=== PATIENT | female | born 2000 | race Caucasian/White ===

== ENCOUNTER 2023-09-02 21:26 | Emergency (ER) | payer OTHER, SELFPAY ==
--- NOTE | 2023-09-02 21:28 | ECG_ITS ---
Measurements Intervals [place] Rate: 109 P: 39 SD: 146 QRS: 29 QRSD: 84 T: 30 QT: 318 QTc: 428 Interpretive Statements SINUS TACHYCARDIA ABNORMAL ECG NO PREVIOUS ECG AVAILABLE FOR COMPARISON Electronically Signed On 09-03-2023 7:24:36 CDT by Ashvin Crouch D.O.
[2023-09-02 21:43] VITALS: BP 138/78; PULSE 120; RESP 18; TEMP 36.5; O2SAT 100
[2023-09-02 22:02] VITALS: O2SAT 100
[2023-09-02 22:06] LABS: Basophils Percent Auto 0.3 % (0.2-1.2); Eosinophils Percent Auto 0.2 % (0-4.4); Hematocrit 31.2 % (37.0-47.0); Hemoglobin 9.7 g/dL (12.0-15.0); Immature Granulocyte Absolute 0.07 K/mm3 (0.00-0.031); Immature Granulocyte Percent A 0.6 % (0-0.5); Lymphocytes Absolute Auto 2.68 K/mm3 (0.9-3.2); Lymphocytes Percent Auto 22.6 % (18.3-44.2); Mean Corpuscular HGB Conc 31.1 g/dl (32-36); Mean Corpuscular Hemoglobin 24.2 pg (26-34); Mean Corpuscular Volume 77.8 fl (80-100); Mean Platelet Volume 10.5 fl (7.4-10.4); Monocytes Absolute Auto 0.9 K/mm3 (0.1-0.6); Monocytes Percent Auto 7.7 % (2.6-8.5); Neutrophils Absolute Auto 8.2 K/mm3 (1.3-6.7); Neutrophils Percent Auto 68.6 % (45.5-73.1); Platelet Count Result 327 k/mm3 (150-375); Red Blood Count 4.01 M/mm3 (4.2-5.4); Red Cell Distribution Width 17.4 % (11.5-14.5); White Blood Count 11.9 K/mm3 (4.5-10.0)
[2023-09-02 22:07] VITALS: PULSE 114
[2023-09-02 22:17] LABS: Prothrombin Time 13.8 Seconds (11.1-14.7)
[2023-09-02 22:18] LABS: Partial Thromboplastin Time 27.3 Seconds (22.3-36.8)
[2023-09-02 22:23] LABS: Alanine Aminotransferase 13 U/L (6-35); Albumin Level 4.2 g/dL (3.5-5.1); Alkaline Phosphatase 77 U/L (38-126); Anion Gap 8 mmol/L (8-16); Aspartate Amino Transferase 20 U/L (14-36); Bilirubin,Total 0.5 mg/dL (0.2-1.3); Blood Urea Nitrogen 12 mg/dL (7-17); Calcium 9.6 mg/dL (8.4-10.2); Carbon Dioxide 20 mmol/L (22-30); Chloride 105 mmol/L (98-107); Estimated CRCL calculation 150 ml/min; Estimated Glomerular Filt Rate > 60; Glucose 92 mg/dL (65-110); Lipase 89 U/L (23-300); Potassium 3.6 mmol/L (3.4-5.0); Sodium 133 mmol/L (137-145)
[2023-09-02 22:26] VITALS: BP 111/72; PULSE 102; RESP 18; O2SAT 100
[2023-09-02 22:45] LABS: Troponin I < 0.012 ng/mL (0.000-0.034)
--- NOTE | 2023-09-02 23:02 | ED.CHESTPAIN ---
HPI - Chest Pain General Chief Complaint: Chest Pain Stated Complaint: chest pain, LLQ pain-26 weeks Time Seen by Provider: 09/02/23 22:45 History of Present Illness HPI narrative: 23-year-old female presents to the emergency department for evaluation of persistent nausea and vomiting. Patient is 26 weeks . Patient states she has been having nausea and vomiting during this but began having some right-sided chest pain with emesis today. Patient denies any lower abdominal pain. Related Data Allergies Allergy/AdvReac Type Severity Reaction Status Date / Time No Known Allergies Allergy Verified 09/02/23 22:04 Review of Systems Review of Systems: All systems reviewed & are unremarkable except as noted in HPI and below PMFSH Past Medical History Medical History Anxiety Depression Encounter for Nexplanon removal 12/30/20222015- 2018 Nexplanon insertion 2019 2013 2016 Family History Family History Mother Lung cancer Other Family history of malignant neoplasm Social History Social History Smoking status: Never smoker Second hand tobacco smoke exposure: No Alcohol intake: former Alcohol use details: socially Substance use: never Substance use type: does not use Lack of Transportation: No Lack of Food: Never True Current Housing: I Have Housing Concerned About Future Housing: No Difficulty Paying Gas/Electric Bills: No Difficulty Paying for Meds: No Currently Unemployed: No Education: Don't Know Living arrangements: with family Additional living arrangements comments: single Occupation/Education: occupation Additional occupation/education comments: [employer] Gender identity (if verbalized by the patient): Female Sexual Orientation (if Verbalized by the Patient): Straight or Heterosexual Exam Narrative: APPEARANCE: Well appearing, no pain, no distress, well-nourished. HEAD: normocephalic, atraumatic. EYES: PERRLA/EOMI, conjunctivae clear. NOSE: Normal no drainage EARS:TMS clear with good light reflex. THROAT: Pharynx clear, no exudate. NECK: Supple. No adenopathy, no masses. RESPIRATORY: Airway patent, respirations nonlabored. Clear to auscultation bilaterally, no rales, rhonchi, wheezing. CARDIOVASCULAR: Regular rate and rhythm without murmurs rubs or gallops. ABDOMINAL: Soft, nontender, nondistended, normal bowel sounds MUSCULOSKELETAL: Moves all extremities. Strength/ROM intact, No edema, No calf tenderness. NEURO: Alert. Cranial nerves II through XII intact. Good gait. Good coordination SKIN: Warm, dry. Normal Color PSYCHIATRIC: Normal affect/mood. Course Course Emergency Course: Patient felt improved with treatment and was discharged home with additional anti emetics Vital Signs Vital signs: Vital Signs Temperature 97.7 F 09/02/23 21:43 Pulse Rate 120 H 09/02/23 21:43 Respiratory Rate 18 09/02/23 21:43 Blood Pressure 138/78 09/02/23 21:43 Pulse Oximetry 100 09/02/23 21:43 Temperature 97.7 F 09/02/23 21:43 Pulse Rate 90 09/03/23 01:17 Respiratory Rate 16 09/03/23 01:17 Blood Pressure 124/83 09/03/23 01:17 Pulse Oximetry 100 09/03/23 01:17 Oxygen Delivery Room Air 09/02/23 22:02 MDM - Chest Pain MDM Narrative Medical decision making narrative: 23-year-old female presents to the emergency department for evaluation persistent nausea and vomiting. Upon arrival emergency depart patient heart rate is 120 but did improve with rehydration. Patient is afebrile but has a leukocytosis of less than 15 and hemoglobin of 9.7. Patient denies any active bleeding. CMP is within normal limits no elevated lipase. Differential Diagnosis Differential diagnosis: Likely atypical chest pain, chest pain and biliar
[2023-09-02] MEDS: ONDANSETRON INJ 4 MG/2 ML VIAL IV PUSH (23:14)
[2023-09-02] MEDS: SODIUM CHLORIDE 0.9% IV 1,000 ML 999 ML IV CONT (23:14)
[2023-09-02 23:21] VITALS: BP 126/72; PULSE 89; RESP 16; O2SAT 100
[2023-09-03 01:17] VITALS: BP 124/83; PULSE 90; RESP 16; O2SAT 100
== END 2023-09-03 01:17 | disposition home or self-care (01) ==
PROVIDERS: Emergency Provider Emergency Medicine
DX: O21.0 Mild hyperemesis gravidarum (principal); O99.891 Other specified diseases and conditions complicating pregnancy; R00.0 Tachycardia, unspecified; Z3A.26 26 weeks gestation of pregnancy
CPT/HCPCS: 36415; 80053; 83690; 84484; 85025; 85610; 85730; 93005; 96361; 96374; 99284; J2405; J7030

== ENCOUNTER 2023-09-27 16:37 | Outpatient (CLI) | payer OTHER, SELFPAY ==
[2023-09-27 17:05] VITALS: BP 119/64; PULSE 85
[2023-09-27 17:15] VITALS: BP 111/64; PULSE 81
[2023-09-27 17:30] VITALS: BP 112/60; PULSE 83
[2023-09-27 17:38] VITALS: BP 112/60; PULSE 83
== END 2023-09-27 17:50 | disposition home or self-care (01) ==
LOC: ANHOBOP 16:43 → ANHOBPP 16:46
PROVIDERS: Visit Provider Obstetrics & Gynecology
DX: O42.90 Premature rupture of membranes, unspecified as to length of time between rupture and onset of labor, unspecified weeks of gestation (principal); Z3A.00 Weeks of gestation of pregnancy not specified
CPT/HCPCS: 59025; 84112; 99199

== ENCOUNTER 2023-10-04 11:25 | Observation (INO) | payer OTHER, SELFPAY ==
[2023-10-04 11:49] VITALS: BP 119/72; PULSE 95
[2023-10-04 12:00] VITALS: BP 125/76; PULSE 94
[2023-10-04 12:26] LABS: Alanine Aminotransferase 8 U/L (6-35); Albumin Level 3.7 g/dL (3.5-5.1); Alkaline Phosphatase 68 U/L (38-126); Anion Gap 5 mmol/L (4-12); Aspartate Amino Transferase 14 U/L (14-36); Bilirubin,Total 0.5 mg/dL (0.2-1.3); Blood Urea Nitrogen 7 mg/dL (7-17); Calcium 8.9 mg/dL (8.4-10.2); Carbon Dioxide 22 mmol/L (22-30); Chloride 108 mmol/L (98-107); Estimated Glomerular Filt Rate > 60; Glucose 99 mg/dL (65-110); Lipase 44 U/L (23-300); Potassium 3.5 mmol/L (3.4-5.0); Sodium 135 mmol/L (137-145)
[2023-10-04 12:30] VITALS: BP 107/69; PULSE 90
[2023-10-04 12:38] LABS: Appearance Urine Cloudy (Clear); Bacteria Urine 3+ /hpf; Bilirubin Urine Negative (Negative); Blood Urine Negative (Negative); Color Urine Dark Yellow (Yellow); Glucose Urine UA Negative (Negative); Ketones Urine Trace mg/dL (Negative); Leukocyte Esterase Ur 2+ LEU/UL (Negative); Mucus Urine Present /lpf; Nitrate Urine Negative (Negative); Non Pathogenic Casts 0-2; Protein Urine Trace mg/dL (Negative); Squamous Epithelial Cell Urine Moderate /hpf (Few); WBC Urine 51-100 /hpf (0-3)
[2023-10-04 12:39] LABS: Add Urine Microscopic? YES
[2023-10-04 13:00] VITALS: BP 113/60; PULSE 80
--- NOTE | 2023-10-04 13:10 | P.PNOB_ITS ---
OB - Triage/Final Diagnosis Visit Information Comments/Additional reasons for admission: I have assessed the risk for this patient, Catrachita Avery, and determined that she would benefit from observation care. Evaluation Laboratory results: Laboratory Tests 10/04/23 12:03 Sodium 135 L Potassium 3.5 Chloride 108 H Carbon Dioxide 22 Anion Gap 5 BUN 7 D Creatinine 0.50 L Estim Creat Clear Calc Not Reportable Estimated GFR > 60 Glucose 99 Calcium 8.9 Total Bilirubin 0.5 AST 14 ALT 8 Alkaline Phosphatase 68 Total Protein 7.0 Albumin 3.7 Lipase 44 Urine Color Dark yellow Urine Appearance Cloudy H Urine pH 6.0 Ur Specific [place] 1.030 Urine Protein Trace Urine Glucose (UA) Negative Urine Ketones Trace H Ur Blood (Man) Negative Urine Nitrate Negative Urine Bilirubin Negative Urine Urobilinogen 1.0 Leukocyte Esterase Rfl 2+ H Urine RBC 3-5 H Urine WBC 51-100 H Ur Squamous Epith Cells Moderate Urine Bacteria 3+ H Urine Casts 0-2 Urine Mucus Present Vital signs: Vital Signs - 24 hr 10/04/23 11:49 10/04/23 12:00 10/04/23 12:30 Pulse Rate 95 94 90 Blood Pressure 119/72 125/76 107/69 10/04/23 13:00 Pulse Rate 80 Blood Pressure 113/60 Final Diagnosis (1) Abdominal pain affecting : Code(s): O26.899 - Other specified related conditions, unspecified trimester; R10.9 - Unspecified abdominal pain Status: Acute
[2023-10-04] MEDS: PANTOPRAZOLE 40 MG TABLET PO (13:16)
[2023-10-04 13:45] VITALS: BMI 37.2
--- NOTE | 2023-10-04 13:46 | OBADM ---
This patient, Catrachita Avery, admitted to the OB room OB Post 116 for observation. Patient/family oriented to hospital policies and general routines including ID bracelet, bed and alarms, visiting hours, pain management, procedures, bathroom and other care routines, personal items, smoking policy, room service/diet, and visiting hours. Patient/Family are encouraged to report perceived risks to care and to ask questions if they do not understand what they are told or what they should do.
== END 2023-10-04 13:30 | disposition home or self-care (01) ==
PROVIDERS: Admitting Provider Obstetrics & Gynecology; Visit Provider Obstetrics & Gynecology
DX: O26.893 Other specified pregnancy related conditions, third trimester (principal); R10.9 Unspecified abdominal pain; Z3A.31 31 weeks gestation of pregnancy
CPT/HCPCS: 36415; 80053; 81001; 83690; 87086; A9270; G0378; G0379

== ENCOUNTER 2023-11-29 05:56 | Inpatient (IN) | payer OTHER, SELFPAY ==
[2023-11-29] VITALS (22 sets, daily range): BP systolic 92–126; BP diastolic 53–83; PULSE 78–112; RESP 16–20; TEMP 36.5–37.3; O2SAT 98–100; BMI 40.3
--- NOTE | 2023-11-29 06:31 | PM.IMHP ---
H&P: HPI History of Present Illness Date/Time: 11/29/23 06:31 Chief Complaint: IOL Narrative: Catrachita is a 23yo @ 39.0wks who presents for elective IOL. She reports good movement. Irregular contractions. No VB or LOF. She has had regular PNC. Her is complicated by: - Obesity - Low lying placenta; AC <10%ile; MFM US normal - Early 1 hour elevated; normal 3 hour - Severe anemic -- s/p IV iron - Rubella non-immune - Repeat testing for chlamydia and trich: NEGATIVE - BREECH --> CEPHALIC 11/22/23 Review of Systems Constitutional: Constitutional: Denies chills, Denies fever(s) and Denies headache(s) Eyes: Eyes: Denies change in vision ENT: Denies headache(s) Cardiovascular: Cardiovascular: Denies chest pain and Denies dyspnea Respiratory: Respiratory: Denies dyspnea Genitourinary: Genitourinary: Denies abnormal vaginal bleeding and Denies vaginal discharge Neurologic: Denies headache(s) Psychiatric: Psychiatric: Denies anxiety and Denies depression [facility] Past Medical History Medical History Anxiety Depression Encounter for Nexplanon removal 12/30/20222015- 2018 Nexplanon insertion 2019 2013 2016 Family History Family History Mother Lung cancer Other Family history of malignant neoplasm Social History Social History Smoking status: Never smoker Second hand tobacco smoke exposure: No Alcohol intake: former Alcohol use details: socially Substance use: never Substance use type: does not use Do You Feel Safe in your Home?: Yes Lack of Transportation: No Lack of Food: Never True Current Housing: I Have Housing Concerned About Future Housing: No Difficulty Paying Gas/Electric Bills: No Difficulty Paying for Meds: No Currently Unemployed: No Education: Grade School Difficulty w/ Childcare or Family Care: No Living arrangements: with family Additional living arrangements comments: single Occupation/Education: occupation Additional occupation/education comments: [employer] Gender identity (if verbalized by the patient): Female Sexual Orientation (if Verbalized by the Patient): Straight or Heterosexual Spiritual care concerns: No Meds Home Medications and Allergies Home Medications Medication Instructions Recorded Confirmed Type vitamin no.102-iron 90 1 cap PO DAILY #90 caps 07/22/23 11/22/23 Rx mg-folate 1 mg-dha 200 mg capsule ondansetron 4 mg disintegrating 4 mg PO Q8H PRN nausea and 09/03/23 11/22/23 Rx tablet vomiting #14 tabs famotidine 20 mg tablet 20 mg PO BID #120 tabs 09/13/23 11/22/23 Rx Allergies Allergy/AdvReac Type Severity Reaction Status Date / Time No Known Allergies Allergy Verified 11/22/23 14:36 Exam Const: General: cooperative, no acute distress and obese Nutritional Appearance: obese Orientation/consciousness: patient oriented x3 Resp: Effort & Inspection: normal respiratory effort Cardio: Rate: regular rate GI: GI Palp: No abdominal tenderness : Other: FHT's: 150's/ mod amilcar/ + accels/ no decels - cat 1 TOCO: irregular ctxs Cervix: 4/thick/-3 Membranes: AROM, clear 0715 Presentation: cephalic on bedside US Skin: General skin exam: normal color Neuro: General: patient oriented x3 Extrem: General: normal to inspection Psych: Appearance: grossly normal Affect: normal affect Attitude: cooperative Assessment and Plan Assessment and plan (1) Encounter for elective induction of labor: Code(s): Z34.90 - Encounter for supervision of normal , unspecified, unspecified trimester Status: Acute Plan - cephalic on bedside US today - low dose pitocin per protocol - Continuous monitoring; currently reassuring - GBS neg - Anesthesia consul
[2023-11-29 07:04] LABS: Basophils Percent Auto 0.3 % (0.2-1.2); Eosinophils Absolute Auto 0.1 K/mm3 (0-0.3); Eosinophils Percent Auto 0.6 % (0-4.4); Hematocrit 34.6 % (37.0-47.0); Hemoglobin 11.3 g/dL (12.0-15.0); Immature Granulocyte Absolute 0.06 K/mm3 (0.00-0.031); Immature Granulocyte Percent A 0.5 % (0-0.5); Lymphocytes Absolute Auto 2.67 K/mm3 (0.9-3.2); Lymphocytes Percent Auto 23.2 % (18.3-44.2); Mean Corpuscular HGB Conc 32.7 g/dl (32-36); Mean Corpuscular Hemoglobin 27.4 pg (26-34); Mean Platelet Volume 11.4 fl (7.4-10.4); Monocytes Absolute Auto 0.9 K/mm3 (0.1-0.6); Monocytes Percent Auto 7.9 % (2.6-8.5); Neutrophils Absolute Auto 7.8 K/mm3 (1.3-6.7); Neutrophils Percent Auto 67.5 % (45.5-73.1); Platelet Count Result 234 k/mm3 (150-375); Red Blood Count 4.12 M/mm3 (4.2-5.4); Red Cell Distribution Width 18.4 % (11.5-14.5); White Blood Count 11.5 K/mm3 (4.5-10.0)
[2023-11-29] MEDS: OXYTOCIN 30 UNITS/NS 500 ML 30 UNITS/500 ML BAG IV CONT (07:16)
[2023-11-29] MEDS: LACTATED RINGERS 1,000 ML 125 ML IV CONT (07:17)
--- NOTE | 2023-11-29 07:34 | WPDANESEPP ---
Anes - Eval Pre Procedure Procedure: labor epidural Date/Time: 11/29/23 07:34 Surgeon: bridger Preop Diagnosis: pain during labor Pre Op Diagnosis: iol Patient Data Age: 23 Gender: F Height: Weight: Last Vital Signs Pulse 102 H 11/29/23 07:30 BP 123/71 11/29/23 07:30 O2 Del Method Room Air 11/29/23 06:25 Allergies Allergy/AdvReac Type Severity Reaction Status Date / Time No Known Allergies Allergy Verified 11/22/23 14:36 Home Medications Medication Instructions Recorded Confirmed Type vitamin no.102-iron 90 1 cap PO DAILY #90 caps 07/22/23 11/22/23 Rx mg-folate 1 mg-dha 200 mg capsule ondansetron 4 mg disintegrating 4 mg PO Q8H PRN nausea and 09/03/23 11/22/23 Rx tablet vomiting #14 tabs famotidine 20 mg tablet 20 mg PO BID #120 tabs 09/13/23 11/22/23 Rx Laboratory Tests 11/29/23 06:40 WBC 11.5 H K/mm3 (4.5-10.0) RBC 4.12 L M/mm3 (4.2-5.4) Hgb 11.3 L g/dL (12.0-15.0) Hct 34.6 L % (37.0-47.0) MCV 84.0 fl (80-100) MCH 27.4 pg (26-34) MCHC 32.7 g/dl (32-36) RDW 18.4 H % (11.5-14.5) Plt Count 234 k/mm3 (150-375) MPV 11.4 H fl (7.4-10.4) Immature Gran % (Auto) 0.5 % (0-0.5) Neut % (Auto) 67.5 % (45.5-73.1) Lymph % (Auto) 23.2 % (18.3-44.2) [place] % (Auto) 7.9 % (2.6-8.5) Eos % (Auto) 0.6 % (0-4.4) Baso % (Auto) 0.3 % (0.2-1.2) Lymph # (Auto) 2.67 K/mm3 (0.9-3.2) [place] # (Auto) 0.9 H K/mm3 (0.1-0.6) Eos # (Auto) 0.1 K/mm3 (0-0.3) Baso # (Auto) 0.0 K/mm3 (0.0-0.1) Abs Immat Gran (auto) 0.06 H K/mm3 (0.00-0.031) Absolute Neuts (auto) 7.8 H K/mm3 (1.3-6.7) Absolute Nucleated RBC 0.000 K/mm3 (0.0-0.012) Nucleated RBC % 0.0 % (0.0-0.2) RPR Pending HIV 1&2 Ab/P24 Ag 4thGn Pending Patient hx anesthesia problems: none Family hx anesthesia problems: none Results Review: All pre-operative results and documents have been reviewed as part of the pre-operative evaluation. [facility] Past Medical History Medical History Anxiety Depression Encounter for Nexplanon removal 12/30/20222015- 2018 Nexplanon insertion 2019 2013 2016 Family History Family History Mother Lung cancer Other Family history of malignant neoplasm Social History Social History Smoking status: Never smoker Second hand tobacco smoke exposure: No Alcohol intake: former Alcohol use details: socially Substance use: never Substance use type: does not use Do You Feel Safe in your Home?: Yes Lack of Transportation: No Lack of Food: Never True Current Housing: I Have Housing Concerned About Future Housing: No Difficulty Paying Gas/Electric Bills: No Difficulty Paying for Meds: No Currently Unemployed: No Education: Grade School Difficulty w/ Childcare or Family Care: No Living arrangements: with family Additional living arrangements comments: single Occupation/Education: occupation Additional occupation/education comments: [employer] Gender identity (if verbalized by the patient): Female Sexual Orientation (if Verbalized by the Patient): Straight or Heterosexual Spiritual care concerns: No Exam Day of Procedure 11/29/23 07:34
[2023-11-29 07:55] LABS: HIV 1/2 Ab P24 Ag Result Negative (Negative)
[2023-11-29 13:39] LABS: Rapid Plasma Reagin Non-Reactive (NonReactive)
[2023-11-29] MEDS: OXYTOCIN 30 UNITS/NS 500 ML 30 UNITS/500 ML BAG 125 UNITS IV CONT (13:39)
--- NOTE | 2023-11-29 14:17 | PM.OBPRVD ---
OB - Vaginal Delivery Note Procedure Delivery date: 11/29/23 Events: Elective Induction of Labor Induction method: Per Pitocin Protocol Delivery augmentation: Rupture of Membranes Delivery monitor: External FHT and Internal Uterine Route of delivery: Episiotomy description: None Laceration Description: Periurethral (right; not bleeding so no stitches placed) Quantitative Blood Loss (ml): 100 Anesthesia type: None Disposition: Floor Complications: No immediate complications [place] Baby Date of : 11/29/23 Time of : 13:21 Weeks of gestation at delivery: 39 Infant gender: Female presentation: vertex Placenta delivery description: Expressed Cord Vessel Description: 3 Vessels and Delayed Cord Clamping score one minute: 9 score five minutes: 9 Narrative: Catrachita progressed to complete dilation with strong desire to push. She pushed for two contractions and delivered the head over intact perineum. No nuchal cord was palpated and she easily delivered the shoulders and body without complication. She was immediately placed skin to skin on mom and cry was heard. Delayed cord clamping was performed. The cord was doubly clamped and cut. A segment of the cord was collected for cord gases. The remaining cord blood was collected for typing. With pitocin running and gentle traction on the cord, the placenta delivered without complication. Fundal massage was performed and good uterine tone with minimal bleeding was noted. She was examined and a small right alex-urethral laceration was identified but not bleeding. Catrachita was offered local anesthesia with stitches but declined. Good uterine tone and minimal bleeding remained. Sponge, lap, instrument, and needle counts were correct. Mom and baby were left bonding in the birthing suite in a stable condition.
--- NOTE | 2023-11-29 16:00 | OBPPTRN ---
Patient transferred to post room #292 via wheelchair. Support person present. Oriented to unit, room, information board, rooming in, admission packet and security measures. Patient verbalizes understanding.
[2023-11-29] MEDS: IBUPROFEN 600 MG TABLET PO (17:52)
[2023-11-30 05:38] LABS: Hemoglobin 9.9 g/dL (12.0-15.0)
--- NOTE | 2023-11-30 07:10 | P.PNOB_ITS ---
OB - PN: Subj Subjective Date/time seen: 11/30/23 07:20 Narrative: PPD#1 Catrachita reports doing well today. 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 Her pain is controlled. She is tolerating regular diet, voiding, passing gas, and ambulating without issues. She is breast feeding. She would like to go home tomorrow. OB - PN: Obj Data Labs 11/30/23 03:53 Labs: Laboratory Results - last 24 hr 11/29/23 11/29/23 06:39 06:40 WBC 11.5 H RBC 4.12 L Hgb 11.3 L Hct 34.6 L MCV 84.0 MCH 27.4 MCHC 32.7 RDW 18.4 H Plt Count 234 MPV 11.4 H Immature Gran % (Auto) 0.5 Neut % (Auto) 67.5 Lymph % (Auto) 23.2 [place] % (Auto) 7.9 Eos % (Auto) 0.6 Baso % (Auto) 0.3 Lymph # (Auto) 2.67 [place] # (Auto) 0.9 H Eos # (Auto) 0.1 Baso # (Auto) 0.0 Abs Immat Gran (auto) 0.06 H Absolute Neuts (auto) 7.8 H Absolute Nucleated RBC 0.000 Nucleated RBC % 0.0 RPR Non-reactive HIV 1&2 Ab/P24 Ag 4thGn Negative Blood Type A Positive Antibody Screen Negative OB - PN A/P Assessment and Plan (1) Status post vaginal delivery: Status: Acute Plan day: 1 Plan: routine care and discharge home (tomorrow) Comments: - PO pain meds - Regular diet - Ambulation and hydration encouraged - Continue putting baby to breast q2-3hr Time Spent With Patient Time: Total time spent is greater than 50% in coordination of care (as documented) at patient's floor/unit and/or counseling patient: Review of Systems Constitutional: Constitutional: Denies chills, Denies fever(s) and Denies headache(s) Eyes: Eyes: Denies change in vision ENT: Denies dizziness and Denies headache(s) Cardiovascular: Cardiovascular: Denies chest pain, Denies palpitations and Denies dyspnea Respiratory: Respiratory: Denies cough and Denies dyspnea Gastrointestinal: Gastrointestinal: Denies nausea and Denies vomiting Neurologic: Denies dizziness and Denies headache(s) Endocrine: Endocrine: Denies palpitations Exam Const: General: cooperative, comfortable and no acute distress Orientation/consciousness: patient oriented x3 Resp: Effort & Inspection: normal respiratory effort Auscultation: clear to auscultation bilaterally Cardio: Rate: regular rate GI: Inspection: non-distended GI Palp: No abdominal tenderness and Yes Soft to palpation Auscultation: normal bowel sounds : Other: fundus firm Skin: General skin exam: normal color Neuro: General: patient oriented x3 Extrem: General: normal to inspection Psych: Appearance: grossly normal Affect: normal affect Attitude: cooperative
[2023-11-30] MEDS: MULTIVIT/MIN/PREN/FOL AC/IRON TABLET 1 TAB PO (08:00)
[2023-11-30] MEDS: POLYSACCHARIDE IRON COMPLEX 150 MG CAPSULE PO ×2 (08:00→17:39)
[2023-11-30] MEDS: FAMOTIDINE 20 MG TABLET PO ×2 (08:00→17:40)
[2023-11-30] MEDS: DOCUSATE SODIUM 100 MG CAPSULE PO ×2 (08:00→17:40)
[2023-11-30] MEDS: IBUPROFEN 600 MG TABLET PO ×2 (08:03→17:40)
[2023-11-30 08:25] VITALS: BP 109/69; PULSE 79; RESP 18; TEMP 36.2; O2SAT 100
--- NOTE | 2023-11-30 12:42 | PC.NURSE ---
[id number]. Introductions were made, then consulted with patient to assess needs related to . Mother led the conversation with her?plans to feed?her and the?experience so far. Mom explained that this is her 3rd baby and she was able to breastfeed her other 2 for a while. Mom explained she has had some tenderness when baby first latches but does not continue to have pain during the rest of the feed. RN Encouraged understanding of the benefits of skin to skin (demonstrating unwrapping infant and placing upright on her chest), stimulating with massage touch, changing positions to encourage wakefulness, how to watch for early feeding cues, responsive feeding, feeding on demand (aiming for 8-12 times in 24 hours, about every 2-3 hours), milk production, building/maintaining a milk supply, duration of feeding, signs of adequate intake/output and how to record on the feeding sheet. Mother works well with her infant with encouragement and education. RN reviewed positioning and ear, shoulder, hip alignment, supporting the breast to facilitate a deep latch, asymmetrical latch (off-center), leading with the chin with a big, open, wide gape and body close to mother. Education given to the mother of how to visualize the suckling (with good rocking jaw motion), swallows (dropping of the lower jaw) and how to listen for drinking at the breast (the ka sound). Reviewed comfort measures of healing with a warm, wet washcloth to rinse breast, then leave open to air-dry, good handwashing when or touching the breast/nipples to prevent infection. Mother voiced understanding of skin to skin, stimulating with massage touch, responsive feedings, hand expressed colostrum, talking to to encourage if it has been 2 -2.5 hours since the start of the last , to call if infant does not latch, or if there is discomfort with . Resources used for education were facilitated with the visual educational handouts & mom and baby guide. Inpatient resources provided with feeding sheet, name written on the communication board, and the mom/baby guide. Mother voiced understanding of information, demonstrated learning and will call if there is a request for assistance. Reported to the Primary RN.
[2023-11-30 19:32] VITALS: BP 121/77; PULSE 75; RESP 16; TEMP 36.6; O2SAT 100
[2023-12-01] MEDS: IBUPROFEN 600 MG TABLET PO (04:30)
[2023-12-01] MEDS: DOCUSATE SODIUM 100 MG CAPSULE PO (06:51)
[2023-12-01] MEDS: POLYSACCHARIDE IRON COMPLEX 150 MG CAPSULE PO (06:51)
[2023-12-01] MEDS: MULTIVIT/MIN/PREN/FOL AC/IRON TABLET 1 TAB PO (06:51)
--- NOTE | 2023-12-01 07:44 | P.DS_ITS ---
DS: Admitting Diagnosis Discharge Date 12/01/23 Admitting Diagnosis Induction of labor DS: Discharge Diagnosis Discharge Diagnosis (1) Status post vaginal delivery: Status: Acute OB - DS: Summary OB Procedures : Ultrasound OB Procedures Intrapartum: Spontaneous Vag Delivery OB Procedures: : None Peripartum Data Delivery Method: Natural Vaginal Laceration Description: Periurethral (right; not bleeding so no stitches placed) Episiotomy description: None Procedures: Procedures Operation Date: 11/29/23 12:00 <No data on this case meets the specified criteria> complications: none [place] 1: Gender: Female Disposition of : home Status at Discharge Functional status at discharge: independent ambulation Overall status at discharge: patient is back to baseline Time Spent with Patient Time attestation: Total time spent providing and/or coordinating discharge services: Exam Const: General: cooperative, comfortable and no acute distress Nutritional Appearance: obese Orientation/consciousness: patient oriented x3 Resp: Effort & Inspection: normal respiratory effort Auscultation: clear to auscultation bilaterally Cardio: Rate: regular rate GI: Inspection: non-distended GI Palp: No abdominal tenderness and Yes Soft to palpation Auscultation: normal bowel sounds : Other: fundus firm Skin: General skin exam: normal color Neuro: General: patient oriented x3 Extrem: General: normal to inspection Psych: Appearance: grossly normal Affect: normal affect Attitude: cooperative DS: Data Data Completed and Pending Labs on day of discharge: Labs from last 24 hours 11/30/23 11/29/23 11/29/23 03:53 06:40 06:39 Hgb 9.9 L Hct 31.0 L RPR Non-reactive HIV 1&2 Ab/P24 Ag 4thGn Negative Blood Type A Positive Antibody Screen Negative Discharge Plan Discharge Attending physician on discharge: Kayla Sorenson Discharging Clinician: Kayla Sorenson Anticipated Discharge Date/Time: 12/01/23 09:00 Patient Disposition: Home, Self-Care Activity: may shower and pelvic rest Diet: regular Patient Instructions: Vaginal Delivery (DC) Stand Alone Forms: General Discharge Information Follow-up/Referrals: Kayla Sorenson MD [Physician] - 4 Weeks Discharge Medications: New acetaminophen 325 mg Tablet 650 mg PO Q6H PRN (Reason: Mild Pain (1-3) Or Headache) Qty: 60 0RF docusate sodium 100 mg Capsule 100 mg PO BID PRN (Reason: Constipation) Qty: 90 0RF ibuprofen 600 mg Tablet 600 mg PO Q6H PRN (Reason: Cramping) Qty: 40 0RF Continued PNV [id number] 90 mg iron- 1 mg-200 mg capsule 1 cap PO DAILY Qty: 90 4RF famotidine 20 mg tablet 20 mg PO BID Qty: 120 3RF ondansetron 4 mg tablet,disintegrating 4 mg PO Q8H PRN (Reason: nausea and vomiting) Qty: 14 0RF Date of admission: 11/29/23 05:56 Primary Care Provider: PHYSICIAN,TEXTILE SCREEN PRINTER Admitting Provider: Kayla Sorenson Attending physician on admission: aKyla Sorenson Condition: Stable
[2023-12-01 08:45] VITALS: BP 116/78; PULSE 76; RESP 16; TEMP 36.6; O2SAT 100
[2023-12-02 10:23] VITALS: BP 131/78; PULSE 97; RESP 18; TEMP 37.1; O2SAT 99
== END 2023-12-01 10:55 | disposition home or self-care (01) | DRG 560 ==
LOC: ANHLDR 06:09 → ANHOB2 16:14
PROVIDERS: Admitting Provider Obstetrics & Gynecology; Visit Provider Obstetrics & Gynecology
DX: O44.43 Low lying placenta NOS or without hemorrhage, third trimester (principal); Z37.0 Single live birth; Z3A.39 39 weeks gestation of pregnancy; O99.02 Anemia complicating childbirth; D64.9 Anemia, unspecified; O99.214 Obesity complicating childbirth; E66.9 Obesity, unspecified; O71.82 Other specified trauma to perineum and vulva
CPT/HCPCS: 36415; 85014; 85018; 85025; 86592; 86703; 86850; 86900; 86901; A9270; G0432; J2590; J7120